=== PATIENT | male | born 1960 | race African-American/Black ===

== ENCOUNTER 2017-03-28 14:18 | Emergency (ER) | payer OTHER ==
[~2017-03-28] VITALS: Ht 177.8 cm; Wt 82.0 kg
[2017-03-28] MEDS ORDERED: ADENOSINE 6 MG/2ML SYRINGE IV ONE ×2 (14:30→14:45)
[2017-03-28] MEDS ORDERED: ADENOSINE 3 MG/ML 2ML VIAL IV ONE (14:33)
[2017-03-28] MEDS ORDERED: DILTIAZEM HCL 5MG/ML 5ML VIAL IV ONE ×2 (14:42→14:45)
[2017-03-28 15:04] LABS: BASOPHILS % 0.9 % (0.0-2.0); EOSINOPHILS % 0.9 % (0.0-5.0); HEMATOCRIT. 46.8 % (42.0-52.0); HEMOGLOBIN. 15.2 g/dL (14.0-18.0); LYMPHOCYTES % 30.4 % (20.0-50.0); MEAN CORPUSCULAR HEMOGLOBIN 28.1 pg (28.0-32.0); MEAN CORPUSCULAR VOLUME 86.6 fL (80.0-94.0); MEAN PLATELET VOLUME 8.2 fl (7.4-10.4); MONOCYTES % 10.3 % (2.0-8.0); NEUTROPHILS % 57.5 % (40.0-76.0); PLATELET 289 x1000/uL (130-400); RED CELL DISTRIBUTION WIDTH 13.1 % (11.6-14.6)
[2017-03-28 15:09] LABS: PROTHROMBIN TIME 10.7 sec (9.4-11.6)
[2017-03-28 15:36] LABS: CARBON DIOXIDE 30 mEq/L (21-32); CHLORIDE 110 mEq/L (98-107); TROPONIN I < 0.02 ng/mL (0.00-0.04)
[2017-03-28 16:27] VITALS: BP 123/82
== END 2017-03-28 16:36 | disposition home or self-care (01) ==
LOC: ER 14:35
DX: I47.1 Supraventricular tachycardia (principal); F41.9 Anxiety disorder, unspecified; Z88.2 Allergy status to sulfonamides
CPT/HCPCS: 36415; 71045; 80053; 83880; 84484; 85025; 85610; 93005; 96374; 96375; 99291; J0153; J3490